=== PATIENT | male | born 1980 | race Caucasian/White ===

== ENCOUNTER → 2020-09-04 12:16 | Outpatient (CLI) | payer MEDICAID, SELFPAY ==
[2020-09-04 12:47] LABS: Erythrocyte Sedimentation Rate 2 mm/hr (0-20)
[2020-09-04 12:50] LABS: Absolute Neutrophil Count 4.4 X10^3/uL (2.0-7.7); Basophil# 0.05 X10^3/uL; Basophil% 0.7 % (0-1); Eosinophil# 0.08 X10^3/uL; Eosinophils% 1.1 % (0-5); Hematocrit 48.1 % (40-54); Lymphocyte % 27.3 % (19-41); Mean Corp Hgb Conc 33.3 g/dL (32-36); Mean Corpuscular Hgb 28.7 pg (27.0-32.0); Mean Corpuscular Volume 86.2 fL (80-94); Mean Platelet Vol. 9.8 fl (6.2-12.0); Monocyte# 0.53 X10^3/uL; Monocyte% 7.6 % (0-10); NRBC Flagged by Analyzer 0 % (0-5); Neutrophil # 4.39 X10^3/uL (2.7-7.7); Platelet Count 280 K/mm3 (150-450); RBC Distribution Width CV 12.1 % (11.6-14.6); RBC Distribution Width SD 38.1 fl (35.1-43.9); Red Blood Count 5.58 M/mm3 (4.6-6.2)
[2020-09-04 13:29] LABS: AST(SGOT) 20 U/L (15-37); Alanine Aminotransfer ALT/SGPT 42 U/L (16-61); Albumin, Serum 3.8 g/dL (3.2-5.0); Alkaline Phosphatase 97 U/L (45-117); Anion Gap 4 (5-15); BUN 10 mg/dL (7-18); BUN/Creat Ratio 8.1 RATIO (10-20); Calcium,Total 8.8 mg/dL (8.5-10.1); Chloride 107 mmol/L (98-107); Cholesterol 146 mg/dL (200); Creatinine, Serum 1.24 mg/dL (0.70-1.30); EST Glomerular Filtration Rate 69 mL/min (>60); Est Glom Filt Rate - Afr Amer 84 mL/min (>60); Globulin 3.7 g/dL (2.2-4.2); Glucose 107 mg/dL (74-106); High Density Lipoprotein 53 mg/dL; Potassium 4.5 mmol/L (3.5-5.1); Protein, Total 7.5 g/dL (6.4-8.2); Sodium Level 139 mmol/L (136-145); T4 Free Direct 1.08 ng/dL (0.76-1.46); Thyroid Stim Hormone (TSH) 2.52 uIU/mL (0.358-3.74); Triglycerides 111 mg/dL; Very Low Density Lipoprotein 22 mg/dL (5-40)
[2020-09-06 12:39] LABS: ANTINUCLEAR ANTIBODIES DIRECT Negative (Negative)
== END ==
DX: R23.1 Pallor (principal)
CPT/HCPCS: 36415; 80053; 80061; 84439; 84443; 85025; 85652; 86038

== ENCOUNTER 2022-09-12 10:11 | Emergency (ER) | payer BC, MEDICAID, SELFPAY ==
[2022-09-12 10:13] VITALS: BP 171/145; PULSE 70; RESP 16; TEMP 36.6; O2SAT 99; BMI 35.4
--- NOTE | 2022-09-12 10:50 | CT_ITS ---
STUDY: CT ABDOMEN AND PELVIS WITH CONTRAST REASON FOR EXAM: Male, 42 years old. Right lower quadrant abdominal pain RADIATION DOSAGE (If Supplied By Facility): CTDIvol = ( 17.72 ) mGy, DLP = ( 1090.7 ) mGycm TECHNIQUE: Transaxial images were obtained from the dome of the diaphragm to the symphysis pubis without oral contrast. IV 100mL Isovue-300 was administered. Sagittal and coronal images were reconstructed. Individualized dose optimization techniques were used for this CT. COMPARISON: None. FINDINGS: The visualized lung bases are unremarkable. The visualized portions of the heart are within normal limits. There is decreased attenuation of the liver consistent with steatosis. Normal gallbladder and extrahepatic biliary system. Normal spleen. Normal pancreas. Normal bilateral adrenal glands. Normal right kidney. Normal left kidney. Normal visualized stomach. There is evidence of a mural thickening of the terminal ileum. This may represent early changes due to Crohn''s disease. No narrowing is seen. Normal colon. The appendix is visualized and appears normal. Normal abdominal aorta. Normal inferior vena cava. Normal retroperitoneum. Normal urinary bladder. There is a small umbilical hernia containing fat. Small bilateral inguinal hernias containing fat. Normal osseous structures. CT/Abdomen/Pelvis W IV Cont ONLY IMPRESSION: Findings suggestive of a possible terminal ileitis as described. Umbilical hernia containing fat. Electronically Signed: Tony Patrick MD at 12:14 EDT ,
[2022-09-12 11:03] LABS: Absolute Lymphocyte Count 1.72 X10^3/uL (0.83-4.51); Basophil# 0.05 X10^3/uL; Basophil% 0.7 % (0-1); Eosinophil# 0.11 X10^3/uL; Eosinophils% 1.5 % (0-5); Hematocrit 44.2 % (40-54); Hemoglobin 14.5 g/dL (13.0-16.5); Lymphocyte # 1.72 X10^3/ul (0.83-4.51); Lymphocyte % 23.4 % (19-41); Mean Corp Hgb Conc 32.8 g/dL (32-36); Mean Corpuscular Hgb 28.4 pg (27.0-32.0); Mean Corpuscular Volume 86.5 fL (80-94); Mean Platelet Vol. 9.8 fl (6.2-12.0); Monocyte# 0.42 X10^3/uL; Monocyte% 5.7 % (0-10); NRBC Flagged by Analyzer 0 % (0-5); Neutrophil # 5.02 X10^3/uL (2.7-7.7); Neutrophil % 68.4 % (47-70); Platelet Count 249 K/mm3 (150-450); RBC Distribution Width CV 12.5 % (11.6-14.6); RBC Distribution Width SD 39.5 fl (35.1-43.9); Red Blood Count 5.11 M/mm3 (4.6-6.2); White Blood Count 7.3 K/mm3 (4.4-11.0)
[2022-09-12 11:04] LABS: Mucous, Urine 0 SEEN /hpf (<or=2+); Red Blood Cells-Urine 0 SEEN /hpf (0-5); Squamous Epithelial Cells - UA 0 SEEN /hpf (0-5)
[2022-09-12 11:09] LABS: Color, Urine Yellow (Yellow); Glucose, Dipstick Normal (Normal); Ketone-Dipstick Negative (Negative); Leukocyte Esterase-Dipstick 25 /ul (Negative); Nitrite-Dipstick Negative (Negative); Occult Blood-Urine Negative /ul (Negative); Protein-Dipstick 15 mg/dl (Negative); Urine Bilirubin Dipstick Negative (Negative); Urine Clarity Sl. Cloudy (Clear); Urine Urobilinogen 1 mg/dl (Normal)
[2022-09-12 11:15] LABS: Bacteria 1+ /hpf (None Seen); Calcium Oxalate Crystals Ur 1+ /hpf (<or=2+); White Blood Cells 0-5 SEEN /hpf (0-5)
[2022-09-12 11:17] LABS: Anion Gap 2 (5-15); BUN 12 mg/dL (7-18); BUN/Creat Ratio 10.3 RATIO (10-20); Calcium,Total 8.5 mg/dL (8.5-10.1); Chloride 111 mmol/L (98-107); Creatinine, Serum 1.17 mg/dL (0.70-1.30); EST Glomerular Filtration Rate 73 mL/min (>60); Est Glom Filt Rate - Afr Amer 89 mL/min (>60); Estimated Creatinine Clearance 67.55 ml/min; Glucose 106 mg/dL (74-106); Potassium 3.8 mmol/L (3.5-5.1); Sodium Level 139 mmol/L (136-145)
--- NOTE | 2022-09-12 12:25 | EX.ED.DYSGE1 ---
HPI History of Present Illness Chief Complaint: Abd Pain Detail of Chief Complaint: Right lower quadrant pain that started 24 to 48 hours ago. Informant: patient Onset/Context/Timing Onset: Yesterday Context: Sudden Onset Timing: Continuous Quality: Pain Location: Right lower quadrant Current Severity: Mild Maximum Severity: Moderate Worsened by: Nothing specific Relieved by: Nothing Associated Symptoms Associated Symptoms: None Narrative Narrative: Patient is a 42-year-old male who presents with right lower quadrant pain from urgent care. He stated they told him he had a CAT scan to rule out appendicitis. Patient denies fever, chills night sweats. Patient denies anorexia. Patient denies vomiting or diarrhea. Patient does have history of renal/ureterolithiasis. Patient denies dysuria, frequency, urgency or hematuria. Patient denies history of IBS or inflammatory bowel disorder. Patient denies blood or mucus in his stool. Patient denies prior episode of right lower quadrant pain. Patient denies cough, shortness of breath difficulty breathing. Patient denies chest pain. Patient denies back pain. There is no history of trauma. He denies dermatologic lesions. Prior similar symptoms: No Recent Illness/Hospitalization: No PFSH PFSH Medical History no medical history no medical history Home Medications hydrocodone-acetaminophen 5-325mg 5mg-325mg 1 tab PO Q6H PRN PRN Pain 3 days #10 TABLETS 09/12/22 [Rx Last Taken Unknown] Allergy/AdvReac Type Severity Reaction Status Date / Time No Known Allergies Allergy Verified 09/12/22 10:12 Surgical History no surgical history no surgical history Social History Smoking Status: Never smoker ROS [facility] ED Constitutional Constitutional ED: Denies chills, fever(s), subjective, sweats or weight loss Eyes Eyes: Denies blurry vision, change in vision or diplopia ENT ENT ED: Denies ear pain, rhinorrhea or sore throat Cardiovascular Cardiovascular: Denies chest pain, palpitations, paroxysmal nocturnal dyspnea or racing heartbeat Respiratory/Chest Respiratory/Chest: Denies cough, dyspnea, dyspnea on exertion or paroxysmal nocturnal dyspnea Gastrointestinal Gastrointestinal: Reports abdominal pain; Denies diarrhea, melena, nausea or vomiting Genitourinary Genitourinary ED: Denies dysuria, hematuria or urinary frequency Musculoskeletal Musculoskeletal: Denies arthralgias, back pain, myalgias or neck pain Integumentary Denies abscess, Abrasions or rash Neurologic Neurologic: Denies headache(s), paresthesias or weakness Psychiatric Psychiatric: Denies anxiety Endocrine Endocrinology: Denies cold intolerance or heat intolerance Hematologic/Lymphatic Hematologic/Lymphatic: Reports systems reviewed and no addt'l complaints, except as documented EXAM Physical Exam Const Vital Signs: 09/12/22 10:13 Temperature 98 F Temperature Source Temporal Pulse Rate 70 Respiratory Rate 16 Blood Pressure 171/145 H Blood Pressure Mean 153 Pulse Ox 99 Oxygen Delivery Method Room Air Positive well nourished, well developed and obese General Appearance ED: well developed and NAD; Negative for cyanotic or diaphoretic Nutritional Appearance: obese HEENT Reports moist mucous membranes HEENT Narrative: Head is atraumatic normocephalic. Ears normal. Nares patent. Posterior pharynx is normal. Uvula is midline. Eyes PERRL and EOMs intact bilaterally General Eye ED: Negative for pale conjunctiva or scleral icterus Neck no lymphadenopathy, supple and no JVD Chest Wall inspection of chest normal and palpation of chest normal Resp normal respiratory effort and clear to auscultation bilaterally Cardio regular rate, regular rhythm, S1 normal heart sound, S2 normal heart sound and no murmurs GI normal to inspection, nondistended, normoactive bowel sounds, non-distended and no masses; Negative for non-tender or hepatosplenomegaly GI Narrative: Reducible umbilical hernia. Auscultation: hypoactive bowel sounds Palpation: tender RLQ, McBurney's point and Rovsing's sign (Equivocal) Back/Spine no CVA tenderness Thoracic Spine / Upper Back: Negative for thoracic spinal tenderness Lumbar Spine / Lower Back: Negative for lumbar spinal tenderness Extremity normal to inspection General Extremety ED: Negative for edema or tenderness General Extremity: Negative for edema Neuro oriented x3, CN's II-XII intact bilaterally and no sensory deficits noted Sensorium / Orientation: alert Psych mental status grossly normal Skin no rashes or lesions noted, no wounds and skin turgor normal MDM MDM MDM Narrative Medical decision making narrative: Presents with right lower quadrant pain history of renal/ureterolithiasis. Differential diagnosis would include appendicitis, mesenteric adenitis since he had recent viral-like symptoms, Crohn's disease, right-sided diverticulitis and unlikely ureterolithiasis. Work-up included CT abdomen pelvis IV contrast, CBC, BMP and a. CBC was obtained to assess white count differential as well as H&H. BMP to assess renal prior to rest. UA to rule out fraction. Lab Data Attestation: I reviewed the patient's lab results. Lab results narrative: CBC and differential are unremarkable. Basic metabolic panel is unremarkable. UA reveals bacteria without pyuria. Labs: Laboratory Results - last 24 hr 09/12/22 09/12/22 09/12/22 10:55 10:55 11:00 WBC 7.3 RBC 5.11 Hgb 14.5 Hct 44.2 MCV 86.5 MCH 28.4 MCHC 32.8 RDW Std Deviation 39.5 RDW Coeff of [place] 12.5 Plt Count 249 MPV 9.8 Immature Gran % (Auto) 0.300 Neut % (Auto) 68.4 Lymph % (Auto) 23.4 [place] % (Auto) 5.7 Eos % (Auto) 1.5 Baso % (Auto) 0.7 Absolute Neuts (auto) 5.0 Absolute Lymphs (auto) 1.72 Nucleated RBC % 0 Sodium 139 Potassium 3.8 Chloride 111 H Carbon Dioxide 26.0 Anion Gap 2 L BUN 12 Creatinine 1.17 Estim Creat Clear Calc 67.55 Est GFR (MDRD) Af Amer 89 Est GFR (MDRD) Non-Af 73 BUN/Creatinine Ratio 10.3 Glucose 106 Calcium 8.5 Urine Color Yellow Urine Clarity Sl. Cloudy Urine pH 6.0 Ur Specific [place] 1.020 Urine Protein 15 H Urine Glucose (UA) Normal Urine Ketones Negative Urine Occult Blood Negative Urine Nitrite Negative Urine Bilirubin Negative Urine Urobilinogen 1 H Ur Leukocyte Esterase 25 H Urine RBC 0 SEEN Urine WBC 0-5 SEEN Ur Squamous Epith Cells 0 SEEN Calcium Oxalate Crystal 1+ Urine Bacteria 1+ Urine Mucus 0 SEEN Urine reveals bacteriuria without pyuria. Radiography Diagnostic Testing: Clinical Impression(s) from Imaging Studies Abdomen/Pelvis CT 09/12/22 10:50 IMPRESSION: Findings suggestive of a possible terminal ileitis as described. Umbilical hernia containing fat. Electronically Signed: Tony Patrick MD at 12:14 EDT , Management Discussion w/another healthcare provider: [employer] (Call was placed Dr. Handley since CAT scan reveals evidence of terminal ileitis, probable Crohn's disease. There is also umbilical hernia which was noted on physical exam. This is reducible) Treatment and Re-Evaluation :: Patient to call Dr. Handley's office for urgent follow-up. He recommended no medication to treat the terminal ileitis. Will discharge with prescription for pain medicine. Discharge Plan Triage Chief Complaint: Abd Pain ED Provider: Titus De La O Dx/Rx/DC Orders Clinical Impression: Terminal ileitis Instructions: ED Crohn's Disease Prescriptions: New hydrocodone-acetaminophen [hydrocodone-acetaminophen] 5-325 mg tablet 1 tab PO Q6H PRN PRN (Reason: Pain) 3 Days Qty: 10 0RF Primary Care Provider: Care Physician,No Primary Referrals: Mt Handley DO [Med Staff - Active Staff] - As soon as possible Care Physician,No Primary [Primary Care Provider] - Disposition Disposition: Home, Self Care
[2022-09-12 13:27] VITALS: BP 117/100; PULSE 57; RESP 14; O2SAT 100
== END 2022-09-12 13:28 | disposition home or self-care (01) ==
PROVIDERS: Emergency Provider Emergency Medicine; Visit Provider Emergency Medicine
DX: K50.00 Crohn's disease of small intestine without complications (principal); E66.9 Obesity, unspecified
CPT/HCPCS: 74177; 80048; 81001; 85025; 87086; 87088; 99283; Q9967; A4216